=== PATIENT | female | born 1985 | race Caucasian/White ===

== ENCOUNTER → 2023-06-09 | Outpatient (CLI) | payer OTHER | END | disposition home or self-care (01) | LOC: RADPV 10:32 | PROVIDERS: ATTEND Chiropractor | DX: R94.31 Abnormal electrocardiogram [ECG] [EKG] (principal); M19.021 Primary osteoarthritis, right elbow; M25.721 Osteophyte, right elbow; R00.2 Palpitations | CPT/HCPCS: 93005; 93306; 73070-TC ==